=== PATIENT | female | born 1970 | race Caucasian/White ===

== ENCOUNTER → 2016-04-26 | Outpatient (CLI) | payer OTHER ==
--- NOTE | 2016-04-26 13:13 | RADONC ---
RADIATION ONCOLOGY CONSULTATION NOTE DATE: 04/26/2016 CHART NUMBER: [id number]. DIAGNOSIS: Right breast cancer. STAGE: 0, [id number] ECOG PERFORMANCE STATUS: 0 CONSULTATION NOTE: Ms. 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 HISTORY OF PRESENT ILLNESS: The patient was in her usual state of health until mammogram was undertaken, which showed a cluster of suspicious microcalcifications in the lower outer section of the right breast. On 03/22/2016, the patient underwent a right breast needle localization, excisional lumpectomy. Pathology revealed a high-grade ductal carcinoma in situ. On 04/13/2016, the patient underwent re-excision with no evidence of residual carcinoma. The estimated size of the DCIS was 0.8 cm. All margins after re-excision of course were negative. The patient has done well since surgery and is now presenting for consideration of postoperative radiation therapy. PAST MEDICAL HISTORY: The patient's past medical history is positive for asthma and menstrual irregularities. ALLERGIES: The patient has no known drug allergies. SOCIAL HISTORY: The patient does not smoke cigarettes. She drinks alcohol socially. FAMILY HISTORY: The patient's family history is negative for breast cancer or other malignancies. REVIEW OF SYSTEMS: The patient's review of systems is positive for some anxiety and occasional headaches but is otherwise noncontributory. Denies nausea, vomiting, fevers, chills, night sweats, diplopia, headaches, anxiety or depression, anorexia, weight loss, visual disturbances, chest pain, urinary or bowel difficulties, bone pain, or neurological problems. PHYSICAL EXAMINATION: The patient is a well-developed, well-nourished, 45-year-old female, in no acute distress. HEENT exam is normocephalic, atraumatic. Extraocular movements are intact. There is no palpable cervical, supraclavicular, infraclavicular, axillary, or inguinal lymphadenopathy present. Lungs are clear to auscultation and percussion. Heart has a regular rate and rhythm. Abdomen is benign with no hepatosplenomegaly, masses, or tenderness. Breast examination reveals no masses or discharge bilaterally. Skeletal examination reveals no tenderness to pressure or percussion of the bony skeleton. Extremities reveal no clubbing, cyanosis, or edema. Neurologic exam is grossly intact, as is the remainder of the physical examination. ASSESSMENT: Ms. Gil is presenting to us today for consideration of postoperative radiation therapy for conservative breast management. For her stage 0, [id number] ductal carcinoma in situ. Clearly the patient is a candidate for this treatment and I have so informed her. I have discussed with the patient in detail the potential benefits as well as possible acute and chronic sequelae of external beam radiation therapy. We discussed logistics of treatment planning, simulation subsequent fractionated daily radiation treatments. The patient has had genetic testing done and is awaiting those results. She is considering bilateral mastectomy if they are positive. In light of this, I have tentatively set her up for initiation of simulation and treatment planning next week. Should the results come back positive, she will consider this and can delay radiation or just cancel it and go with the mastectomies. Once again, we await the patient's decision, but in the meantime are going ahead so there will be no delay in treatment planning. Thank you for allowing us to participate in the care of this very pleasant woman. If I could be of any further assistance or provide you with any information, please free to contact me anytime. cc: *Dr. Gama *Shannon Acevedo MD
== END ==
LOC: M ONCR 09:46
PROVIDERS: ATTEND Radiology Radiation Oncology
DX: D05.11 Intraductal carcinoma in situ of right breast (principal); J45.909 Unspecified asthma, uncomplicated

== ENCOUNTER → 2016-04-28 | Outpatient (REF) | payer OTHER ==
[2016-04-29 11:17] LABS: CARCINOEMBRYONIC ANTIGEN 0.6 NG/ML (<2.5)
== END ==
LOC: M LAB REF 12:28
PROVIDERS: ATTEND Internal Medicine Medical Oncology
DX: C50.919 Malignant neoplasm of unspecified site of unspecified female breast (principal)

== ENCOUNTER 2016-05-05 08:30 | Outpatient (RCR) | payer OTHER ==
--- NOTE | 2016-05-06 07:33 | RADONC ---
RADIATION ONCOLOGY SIMULATION NOTE: DATE: 05/05/2016 Ms. Gil was taken to the CT scan for CT simulation of her right breast field. CT was accomplished without difficulty or discomfort. Radiation treatment planning is underway and radiation treatments will begin subsequently. An immobilization device was created and will be used throughout the course of treatment. It was also created without difficulty or discomfort. I was physically present throughout the course of CT simulation.
--- NOTE | 2016-05-24 08:19 | RADONC ---
RADIATION ONCOLOGY PROGRESS NOTE DATE: 05/23/2016 CHART NUMBER: [id number] Ms. Gil underwent her first fraction of radiation for 180 cGy today to her right breast. It was tolerated without difficulty or discomfort. The patient's review of systems is noncontributory. She denies nausea, vomiting, fevers, chills, night sweats, diplopia, headaches, anxiety or depression, anorexia, weight loss, visual disturbances, chest pain, urinary or bowel difficulties, bone pain, or neurological problems. PHYSICAL EXAMINATION: The patient's skin clearly shows no evidence of radiation change present. The remainder of her physical exam remains unchanged as well. Ms. Gil is tolerating treatments quite well and radiation will continue as scheduled.
== END 2016-05-27 ==
LOC: M ONCR 08:30
PROVIDERS: ATTEND Radiology Radiation Oncology
DX: D05.11 Intraductal carcinoma in situ of right breast (principal)

== ENCOUNTER → 2016-05-05 | Outpatient (CLI) | payer OTHER | LOC: M RAD 08:11 | PROVIDERS: ATTEND Radiology Radiation Oncology | DX: C50.911 Malignant neoplasm of unspecified site of right female breast (principal) ==

== ENCOUNTER 2016-05-30 08:06 | Outpatient (RCR) | payer OTHER ==
--- NOTE | 2016-05-31 08:23 | RADONC ---
RADIATION ONCOLOGY PROGRESS NOTE DATE: 05/30/2016 CHART NUMBER: [id number] Ms. Gil is thus far at a dose of 900 cGy to her right breast and was last treated on 05/27/2016. She did not come in today secondary to machine breakdown. As of Monday she had been tolerating her treatments quite well without difficulty. The patient is scheduled to resume radiation tomorrow.
--- NOTE | 2016-06-07 07:15 | RADONC ---
RADIATION ONCOLOGY PROGRESS NOTE DATE: 06/06/2016 CHART NUMBER: [id number] Ms. Gil is thus far at a dose of 1620 cGy to her right breast and was last treated on 06/03/2016. As of Monday, the patient had been tolerating her treatments quite well with no difficulties related to her radiation therapy. REVIEW OF SYSTEMS: The patient's review of systems is noncontributory. Denies nausea, vomiting, fevers, chills, night sweats, diplopia, headaches, anxiety or depression, anorexia, weight loss, visual disturbances, chest pain, urinary or bowel difficulties, bone pain, or neurological problems. PHYSICAL EXAMINATION: The patient's skin over the treated field was in excellent condition with no evidence of moist or dry desquamation. The remainder of physical exam was brief since it was done on the treatment machine, but remained unchanged. As of Monday, the patient had been tolerating treatments quite well. She is scheduled to resume treatments tomorrow.
--- NOTE | 2016-06-14 07:56 | RADONC ---
RADIATION ONCOLOGY PROGRESS NOTE DATE: 06/13/2016 CHART NUMBER: [id number] Ms. Gil is presently at a dose of 2520 cGy to her right breast and is tolerating treatments quite well at this point with no complaints related to her radiation therapy. She is having no breast or bone pain. The patient's review of systems is noncontributory. She denies nausea, vomiting, fevers, chills, night sweats, diplopia, headaches, anxiety or depression, anorexia, weight loss, visual disturbances, chest pain, urinary or bowel difficulties, bone pain, or neurological problems. PHYSICAL EXAMINATION: The patient's skin is in good condition with no evidence of moist or dry desquamation. The remainder of her physical exam remains unchanged. Ms. Gil is tolerating treatments quite well and radiation will continue as scheduled.
--- NOTE | 2016-06-21 08:21 | RADONC ---
RADIATION ONCOLOGY PROGRESS NOTE DATE: 06/20/2016 CHART NUMBER: [id number] Ms. Gil is presently at a dose of 3420 cGy to her right breast and is tolerating treatments quite well at this point with no complaints related to her radiation therapy. She is having no breast or bone pain. REVIEW OF SYSTEMS: The patient's review of systems is noncontributory. Denies nausea, vomiting, fevers, chills, night sweats, diplopia, headaches, anxiety or depression, anorexia, weight loss, visual disturbances, chest pain, urinary or bowel difficulties, bone pain, or neurological problems. PHYSICAL EXAMINATION: The patient's skin is in good condition with no evidence of moist or dry desquamation. The remainder of her physical exam remains unchanged. Ms. Gil is tolerating treatments quite well at this point with no complaints related to her radiation therapy. Radiation will continue as scheduled.
== END 2016-06-26 ==
LOC: M ONCR 08:06
PROVIDERS: ATTEND Radiology Radiation Oncology
DX: D05.11 Intraductal carcinoma in situ of right breast (principal)

== ENCOUNTER 2016-06-27 10:30 | Outpatient (RCR) | payer OTHER ==
--- NOTE | 2016-06-28 07:29 | RADONC ---
RADIATION ONCOLOGY PROGRESS NOTE DATE: 06/27/2016 CHART NUMBER: [id number]. Ms. Gil is presently a dose of 4140 cGy to her right breast and is tolerating treatments quite well at this point with no complaints related to her radiation therapy. She is having no skin or bone pain. The patient's review of systems is noncontributory. She denies nausea, vomiting, fevers, chills, night sweats, diplopia, headaches, anxiety or depression, anorexia, weight loss, visual disturbances, chest pain, urinary or bowel difficulties, bone pain, or neurological problems. PHYSICAL EXAMINATION: The patient is a well-developed, well-nourished white female in no acute distress. HEENT exam is normocephalic, atraumatic. Extraocular movements are intact. There is no palpable cervical, supraclavicular, infraclavicular, axillary, or inguinal lymphadenopathy present. Lungs are clear to auscultation and percussion. Heart has a regular rate and rhythm. Abdomen is benign with no hepatosplenomegaly, masses, or tenderness. Breast examination reveals no masses or discharge bilaterally. Skeletal examination reveals no tenderness to pressure or percussion of the bony skeleton. Extremities reveal no clubbing, cyanosis, or edema. Neurologic exam is grossly intact, as is the remainder of the physical examination. ASSESSMENT: The patient is clinically doing well at this point and radiation will continue as scheduled.
--- NOTE | 2016-06-29 09:46 | RADONC ---
RADIATION ONCOLOGY SIMULATION NOTE DATE: 06/28/2016 CHART NUMBER: [id number] Ms. Gil was taken to the linear accelerator today for clinical setup of her electron beam boost field. Setup was accomplished without difficulty or discomfort. Radiation treatment planning is underway and radiation treatments will begin subsequently. An immobilization device will be utilized throughout the course of treatment. It was constructed without difficulty or discomfort. I was physically present throughout the course of simulation.
--- NOTE | 2016-07-05 07:28 | RADONC ---
RADIATION ONCOLOGY PROGRESS NOTE DATE: 07/04/2016 CHART NUMBER: [id number]. PROGRESS NOTE: Ms. Gil is presently at a dose of 5060 cGy to her right breast primary site and is tolerating treatments quite well at this point with no significant difficulties related to her radiation therapy. REVIEW OF SYSTEMS: The patient does have some discomfort and irritation in the axillary region of her breast right breast field. Her review of systems is otherwise noncontributory. Denies nausea, vomiting, fevers, chills, night sweats, diplopia, headaches, anxiety or depression, anorexia, weight loss, visual disturbances, chest pain, urinary or bowel difficulties, bone pain, or neurological problems. PHYSICAL EXAMINATION: The patient's skin overall is in good condition with no evidence of moist or dry desquamation. There is some erythema and tanning present in the axillary region and inframammary regions. The remainder of her physical exam remains unchanged. Ms. Gil is tolerating treatments quite well and radiation will continue as scheduled.
--- NOTE | 2016-07-12 08:41 | RADONC ---
RADIATION ONCOLOGY PROGRESS NOTE DATE: 07/11/2016 CHART NUMBER: [id number]. PROGRESS NOTE: Ms. Gil is presently a dose of 5860 cGy to her right breast primary site boost and is tolerating treatments quite well at this point with no complaints related to her radiation therapy other than some tenderness in the inframammary and axillary regions. REVIEW OF SYSTEMS: The patient's review of systems is positive for skin tenderness but is otherwise noncontributory. Denies nausea, vomiting, fevers, chills, night sweats, diplopia, headaches, anxiety or depression, anorexia, weight loss, visual disturbances, chest pain, urinary or bowel difficulties, bone pain, or neurological problems. PHYSICAL EXAMINATION: The patient's skin is in good condition with no evidence of moist or dry desquamation. There is some erythema and tanning present specifically in the axillary and inframammary regions. The remainder of physical exam remains unchanged. Ms. Gil is tolerating treatments quite well and radiation will continue as scheduled.
--- NOTE | 2016-07-13 09:29 | RADONC ---
RADIATION ONCOLOGY TREATMENT SUMMARY DATE: 07/12/2016 CHART NUMBER: [id number] DIAGNOSIS: Right breast cancer. STAGE: 0, [id number]. ECOG PERFORMANCE STATUS: 0 TREATMENT SUMMARY: Ms. Gil is a delightful 45-year-old white female with the diagnosis of a stage 0, [id number], ductal carcinoma in situ of the right breast who presented to us status post lumpectomy for consideration of postoperative radiation therapy for conservative breast management. We treated the patient to her right breast for a total dose of 4860 cGy delivered in 27 fractions of 180 cGy each over 39 elapsed days from 05/23/2016 through 07/01/2016. The patient's right breast was treated on a linear accelerator utilizing a 6 MV photon beam via medial and lateral tangential mancia utilizing 3D conformal technique. Following completion of 4860 cGy to the entire right breast, the primary site was boosted for an additional 1200 cGy delivered in 6 fractions of 200 cGy each from 07/04/2016 through 07/12/2016. The primary site boost was treated on a linear accelerator utilizing a 9 MeV electron beam prescribed to the 90% isodose line via an en face technique. This brought the primary site to a total dose of 6060 cGy delivered in 33 fractions over 50 elapsed days from 05/23/2016 through 07/12/2016. Ms. Gil tolerated her treatments quite well, was able to complete therapy as prescribed without interruption. I have scheduled the patient see me again in 1 month for further followup. She will also continue to be followed by her other physicians as well. cc: Christiano Lozano MD *Shannon Acevedo MD *Jaelyn Gama MD
== END 2016-07-27 ==
LOC: M ONCR 10:30
PROVIDERS: ATTEND Radiology Radiation Oncology
DX: D05.11 Intraductal carcinoma in situ of right breast (principal)

== ENCOUNTER → 2016-08-10 | Outpatient (CLI) | payer OTHER ==
--- NOTE | 2016-08-11 09:40 | RADONC ---
RADIATION ONCOLOGY FOLLOWUP NOTE DATE: 08/10/2016 CHART NUMBER: [id number] DIAGNOSIS: Right breast cancer. STAGE: 0, [id number]. ECOG performance status zero. FOLLOWUP NOTE: Ms. Gil is a delightful 45-year-old white female with the diagnosis of a stage 0, Tis N0M0 ductal carcinoma in situ of the right breast who is presenting to us today for routine followup visit 1 month post completion of external beam radiation therapy. The patient presents today reporting that she is doing quite well with no complaints at this time related to her radiation therapy or disease. She has no breast or bone pain. REVIEW OF SYSTEMS: The patient's review of systems is noncontributory. Denies nausea, vomiting, fevers, chills, night sweats, diplopia, headaches, anxiety or depression, anorexia, weight loss, visual disturbances, chest pain, urinary or bowel difficulties, bone pain, or neurological problems. PHYSICAL EXAMINATION: The patient is a well-developed, well-nourished, 46-year-old female in no acute distress. HEENT exam is normocephalic, atraumatic. Extraocular movements are intact. There is no palpable cervical, supraclavicular, infraclavicular, axillary, or inguinal lymphadenopathy present. Lungs are clear to auscultation and percussion. Heart has a regular rate and rhythm. Abdomen is benign with no hepatosplenomegaly, masses, or tenderness. Breast examination reveals no masses or discharge bilaterally. Skeletal examination reveals no tenderness to pressure or percussion of the bony skeleton. Extremities reveal no clubbing, cyanosis, or edema. Neurologic exam is grossly intact, as is the remainder of the physical examination. ASSESSMENT: The patient is clinically MAHIN at this time and will be seen by us again in 6 months for further followup. She will also continue to be followed by her other physicians as well. cc: MD Shannon Chaudhry MD *MD BETHANIE Raman
== END ==
LOC: M ONCR 15:10
PROVIDERS: ATTEND Radiology Radiation Oncology
DX: D05.11 Intraductal carcinoma in situ of right breast (principal)

== ENCOUNTER → 2016-12-01 | Outpatient (CLI) | payer OTHER ==
--- NOTE | 2016-12-01 13:39 | REP ---
DIGITAL DIAGNOSTIC BILATERAL MAMMOGRAPHY WITH CAD: HISTORY: 6-month followup status post treatment for right breast malignancy. Comparison mammography February 01, 2016 and January 27, 2016. Patient is status post lumpectomy and radiation therapy. FINDINGS: Mild scattered fibroglandular elements are seen. There is mild post-treatment change in the right breast laterally. The previously noted grouping of microcalcifications is no longer apparent. No new microcalcification is seen on either side. No mass, architectural distortion, or worrisome skin change is seen. IMPRESSION: BIRADS category 2 benign bilateral breast imaging. Annual screening bilateral mammography can be resumed. BI-RADS/ACR category 2 mammogram. Benign finding(s). Routine annual screening mammography (for women over age 40). This mammogram was interpreted with the aid of an FDA-approved computer-aided detection system. The patient states she/he had a clinical breast exam in September 2016. The patient letter being requested is M2. Signed by Haroon King MD 12/01/2016 05:22 P
== END ==
LOC: M RAD 12:34
PROVIDERS: ATTEND Registered Nurse
DX: D05.11 Intraductal carcinoma in situ of right breast (principal)

== ENCOUNTER → 2017-09-18 | Outpatient (REF) | payer OTHER ==
[2017-09-18 14:21] LABS: FOLLICLE STIMULATING HORMONE 22.6 mIU/mL
== END ==
LOC: M LAB REF 13:47
DX: D05.11 Intraductal carcinoma in situ of right breast (principal)

== ENCOUNTER → 2017-10-02 | Outpatient (REF) | payer OTHER ==
[2017-10-04 15:25] LABS: HPV HYBRID CAPTURE II Negative (Negative)
== END ==
LOC: M SFHCWAGY 14:08
DX: Z12.4 Encounter for screening for malignant neoplasm of cervix (principal)
CPT/HCPCS: G0123

== ENCOUNTER 2017-12-28 09:51 | Day surgery (SDC) | payer OTHER ==
[2017-12-28] MEDS ORDERED: NS 1,000 ML IV (11:00)
[2017-12-28] MEDS ORDERED: ONDANSETRON 4MG/2ML VIAL (J2405) IV (11:15)
[2017-12-28] MEDS ORDERED: fentaNYL 100 MCG/2 ML INJECTION (J3010) IV (11:15)
[2017-12-28] MEDS ORDERED: LR 1,000 ML IV (11:15)
[2017-12-28] MEDS ORDERED: PROPOFOL 200 MG/20 ML VIAL As Ordered (12:11)
== END 2017-12-28 12:45 | disposition home or self-care (01) ==
LOC: M OPP 12:45
DX: Z12.11 Encounter for screening for malignant neoplasm of colon (principal); Z15.09 Genetic susceptibility to other malignant neoplasm; D64.9 Anemia, unspecified; J45.909 Unspecified asthma, uncomplicated; J30.2 Other seasonal allergic rhinitis; Z80.0 Family history of malignant neoplasm of digestive organs; Z90.10 Acquired absence of unspecified breast and nipple; Z92.3 Personal history of irradiation
CPT/HCPCS: 45378

== ENCOUNTER → 2018-01-24 | Outpatient (CLI) | payer OTHER | LOC: M RAD 08:31 | DX: Z08 Encounter for follow-up examination after completed treatment for malignant neoplasm (principal); Z85.3 Personal history of malignant neoplasm of breast; N60.31 Fibrosclerosis of right breast | CPT/HCPCS: 77065 ==

== ENCOUNTER 2023-03-03 12:34 | Day surgery (SDC) | payer OTHER ==
[~2023-03-03] VITALS: Ht 160 cm; Wt 57.6 kg
[~2023-03-03 12:34] MED LIST: MULT-90 PO; MULT1TAB10 PO; MULTCAP PO; NS 1,000 ML IV ONE; TAMO20TA8 PO; VITA100T59 PO
[2023-03-03] MEDS ORDERED: propofoL 200 MG/20 ML VIAL As Ordered ONE (13:58)
[2023-03-03] MEDS ORDERED: LIDOCAINE 2% 100MG/5ML SDV (FOR ANES.) As Ordered ONE (13:58)
[2023-03-03 14:58] VITALS: TEMP 97.6
[2023-03-03 15:14] VITALS: BP 110/66; O2SAT 96
== END 2023-03-03 15:16 | disposition home or self-care (01) ==
LOC: M OPP 12:34
PROVIDERS: ATTEND Internal Medicine Gastroenterology
DX: Z12.11 Encounter for screening for malignant neoplasm of colon (principal); Z80.0 Family history of malignant neoplasm of digestive organs; Z15.09 Genetic susceptibility to other malignant neoplasm; Z79.810 Long term (current) use of selective estrogen receptor modulators (SERMs)

== ENCOUNTER → 2023-03-06 | Outpatient (REF) | payer OTHER ==
[~2023-03-06] MED LIST changes: -NS 1,000 ML IV ONE
== END ==
LOC: M SFHCWAGY 16:50
PROVIDERS: ATTEND Nurse Practitioner Family
DX: R10.2 Pelvic and perineal pain (principal); N94.10 Unspecified dyspareunia
CPT/HCPCS: 87070; 87624; G0123

== ENCOUNTER → 2023-03-14 | Outpatient (CLI) | payer OTHER | LOC: M WHC 11:46 | PROVIDERS: ATTEND Nurse Practitioner Family | DX: R10.2 Pelvic and perineal pain (principal); N94.10 Unspecified dyspareunia; R93.89 Abnormal findings on diagnostic imaging of other specified body structures ==

== ENCOUNTER 2023-10-09 06:08 | Day surgery (SDC) | payer OTHER ==
[~2023-10-09] VITALS: Ht 160 cm; Wt 60.1 kg
[2023-10-09] MEDS ORDERED: LR 1,000 ML IV SCH ×2 (06:20→09:15)
[2023-10-09] MEDS ORDERED: fentaNYL 100 MCG/2 ML INJECTION As Ordered ONE (06:47)
[2023-10-09] MEDS ORDERED: propofoL 200 MG/20 ML VIAL As Ordered ONE (06:47)
[2023-10-09] MEDS ORDERED: LIDOCAINE 2% 100MG/5ML SDV (FOR ANES.) As Ordered ONE (06:47)
[2023-10-09] MEDS ORDERED: MIDAZOLAM INJ 2MG/2ML VIAL As Ordered ONE (06:47)
[2023-10-09] MEDS ORDERED: ROCURONIUM BROMIDE 50MG/5ML VIAL As Ordered ONE (06:48)
[2023-10-09] MEDS ORDERED: ACETAMINOPHEN 1000MG 100ML IV BAG As Ordered ONE (06:48)
[2023-10-09] MEDS: LR 1,000 ML IV SCH (06:53)
[2023-10-09 06:57] LABS: HEMATOCRIT 39.6 % (36.0-47.0); HEMOGLOBIN 12.9 g/dl (12.0-15.5); MEAN CORPUSCULAR HEMOGLOBIN 30.6 pg (27.0-33.0); MEAN CORPUSCULAR HGB CONC 32.6 g/dl (32.0-36.5); MEAN CORPUSCULAR VOLUME 94.1 fl (80.0-96.0); PLATELET COUNT, AUTOMATED 186 10^3/uL (150-450); RED BLOOD COUNT 4.21 10^6/uL (4.00-5.40); WHITE BLOOD COUNT 4.1 10^3/uL (4.0-10.0)
[2023-10-09] MEDS: METHYLENE BLUE 0.5% (5MG/ML) 10 ML AMP (PROVAYBLUE) As Ordered ONE (07:10)
[2023-10-09] MEDS: ceFAZolin SOD 2 GM in IV 1 EA IV ONE (07:40)
[2023-10-09] MEDS ORDERED: SUGAMMADEX SODIUM 500 MG/5 ML VIAL (BRIDION) As Ordered ONE (08:09)
[2023-10-09] MEDS ORDERED: ONDANSETRON 4MG 2ML VIAL As Ordered ONE (08:09)
[2023-10-09] MEDS ORDERED: HYDROmorphone HCL 2MG/ML 1ML VIAL As Ordered ONE (08:36)
[2023-10-09] MEDS ORDERED: oxyCODONE 5MG TAB PO PRN (09:15)
[2023-10-09] MEDS ORDERED: HYDROMORPHONE HCL 0.5 MG/ 0.5 ML SYRINGE IV PRN (09:15)
[2023-10-09] MEDS ORDERED: fentaNYL 100 MCG/2 ML INJECTION IV PRN (09:15)
[2023-10-09] MEDS ORDERED: OXYC1TAB23 PO (09:20)
[2023-10-09] MEDS ORDERED: IBUP-1022 PO (09:21)
[2023-10-09] MEDS ORDERED: PERCOCET 5MG/325MG TAB PO PRN (09:35)
[2023-10-09] MEDS: ONDANSETRON 4MG 2ML VIAL IV PRN (10:28)
[2023-10-09 12:05] VITALS: BP 145/67; TEMP 97.9; O2SAT 99
== END 2023-10-09 12:40 | disposition home or self-care (01) ==
LOC: M SDC 06:08
PROVIDERS: ATTEND Specialist
DX: N84.0 Polyp of corpus uteri (principal); N93.9 Abnormal uterine and vaginal bleeding, unspecified; Q51.3 Bicornate uterus; J45.909 Unspecified asthma, uncomplicated; Z85.3 Personal history of malignant neoplasm of breast; Z79.52 Long term (current) use of systemic steroids; Z92.3 Personal history of irradiation; Z80.0 Family history of malignant neoplasm of digestive organs
CPT/HCPCS: 36415; 58571; 85027; 86850; 86900; 86901; 88307; 93005; J0131; J0665; J0690; J1100; J1170; J2250; J2405; J3010; S2900

== ENCOUNTER → 2025-02-03 | Outpatient (CLI) | payer OTHER ==
[~2025-02-03] MED LIST changes: +IBUP600T42 PO; +OXYC1TAB23 PO
== END ==
LOC: M WHC 09:02
DX: Z12.31 Encounter for screening mammogram for malignant neoplasm of breast (principal); Z85.3 Personal history of malignant neoplasm of breast; M85.89 Other specified disorders of bone density and structure, multiple sites; R92.333 Mammographic heterogeneous density, bilateral breasts